=== PATIENT | female | born 1955 | race Caucasian/White ===

== ENCOUNTER 2017-04-18 16:17 | Observation (INO) | payer MEDICARE, OTHER ==
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
--- NOTE | ~2017-04-18 | EKG ---
PATIENT: YVONNE TRUJILLO UNIT #: [id number] Ventricular Rate: 76 BPM Atrial Rate: 76 BPM P-R Interval: 132 ms QRS Duration: 78 ms Q-T Interval: 402 ms QTC Calculation(Bezet): 452 ms P Galva: 78 degrees Calculated R Galva: 33 degrees Calculated T Galva: 62 degrees Diagnosis Line: Normal sinus rhythm Diagnosis Line: Nonspecific ST and T wave abnormality Diagnosis Line: Abnormal ECG Diagnosis Line: No previous ECGs available Diagnosis Line: Confirmed by YAMILA DEJESUS MD ([id number]) on Diagnosis Line: 04/18/2017 10:55:51 PM INTERPRETING MD: LORETO
--- NOTE | ~2017-04-18 | EKG ---
PATIENT: YVONNE TRUJILLO UNIT #: [id number] Ventricular Rate: 70 BPM Atrial Rate: 70 BPM P-R Interval: 140 ms QRS Duration: 80 ms Q-T Interval: 424 ms QTC Calculation(Bezet): 457 ms P Atherton: 77 degrees Calculated R Atherton: 9 degrees Calculated T Atherton: 57 degrees Diagnosis Line: Normal sinus rhythm with sinus arrhythmia Diagnosis Line: Normal ECG Diagnosis Line: When compared with ECG of 18-APR-2017 18:11, Diagnosis Line: Nonspecific T wave abnormality no longer evident Diagnosis Line: in Lateral leads Diagnosis Line: Confirmed by YAMILA DEJESUS MD ([id number]) on Diagnosis Line: 04/20/2017 7:20:30 AM INTERPRETING MD: LORETO
--- NOTE | ~2017-04-18 | ST ---
Unit #: [id number] #: [id number] Patient: YVONNE TRUJILLO [id number] [address] [address] [id number] I MR#: [id number] NAME: YVONNE TRUJILLO : 1955 SEX: F STUDY DATE/TIME: 04/19/2017 UNIT: C3A PCU ROOM: [facility] STUDY DESCRIPTION: Walking Lexiscan stress test Attending Physician: Diana Spencer M.D. Primary Care Physician: Makayla Peter A.P.R.N. CARDIOLOGY REPORT PROCEDURE PERFORMED Walking Lexiscan Cardiolite stress test. REPORT Baseline EKG - Normal sinus rhythm with ventricular rate 62 beats per minute, left atrial abnormality, slow R wave progression, nonspecific ST-T wave abnormalities in inferior leads. Lexiscan is a 4-minute test with Lexiscan being injected within the first minute, followed by Cardiolite. FINDINGS 1. EKG during the test showed a 0.5 mm to [address] depression in inferior, anterolateral leads. 2. The patient had no complaints of chest pain, palpitations or dizziness. Had increased shortness of breath and fatigue, which resolved in recovery phase. 3. Maximum heart rate response was 122 beats per minute with a maximum blood pressure response of 150/80 mmHg. 4. Cardiolite was injected after Lexiscan within the first minute of the test. Radionuclide tests pending. Please correlate with nuclear images. Dictated by... Thelma Guzmán A.P.R.N. for Senthil Hernandez/mahendra TD: 04/19/2017 11:40 JOB #: [id number] CARDIOLOGY REPORT Page 1 of 1 X Thelma Guzmán APRN CARDIOLOGY REPORT
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
--- NOTE | ~2017-04-18 | CR72 ---
[facility] A Service of [facility] & [facility] RADIOLOGY TEXT RESULTS PATIENT: YVONNE TRUJILLO LOCATION: [facility] 322-01 : [birth year] UNIT #: [id number] AGE: [address]: Diana Spencer MD SEX: F ORDER DR: [id number] [facility] [address] [place], [place] [address] [id number] I MR#: [id number] Acc #: [id number] NAME: YVONNE TRUJILLO. : 1955 SEX: F STUDY DATE/TIME: 04/18/2017 17:49 UNIT: [address] ROOM: [facility] STUDY DESCRIPTION: CR Chest Single View Portable Attending Physician: Diana Spencer M.D. Ordering Physician: Ed Chuckie Sanchez M.D. Primary Care Physician: Makayla Peter A.P.R.N. MEDICAL IMAGING REPORT This report is preliminary unless electronic signature is present EXAM Portable chest. HISTORY History of bronchitis, shortness of air, chest pain. Onset this morning. FINDINGS A single AP portable view of the chest shows both lungs to be clear. The heart is normal in size. The mediastinal contour is normal. No significant bone abnormalities are seen. IMPRESSION Normal AP portable chest. Dictated by... Connie Florian M.D. THIS IS AN ELECTRONICALLY VERIFIED REPORT Connie Florian M.D. at 04/19/2017 2:48 PM Dipti TD: 04/19/2017 00:30 JOB #: [id number] MEDICAL IMAGING REPORT Page 1 of 1 COPY
--- NOTE | ~2017-04-18 | TH ---
Unit #: [id number] #: [id number] Patient: YVONNE TRUJILLO [id number] [address] [address] [id number] I MR#: [id number] NAME: YVONNE TRUJILLO : 1955 SEX: F STUDY DATE/TIME: 04/19/2017 UNIT: C3A PCU [facility] STUDY DESCRIPTION: Attending Physician: Diana Spencer M.D. Primary Care Physician: Makayla Peter A.P.R.N. CARDIOLOGY REPORT EXAM Lexiscan Cardiolite stress test, nuclear portion. PROCEDURE Using technetium 99m labeled Cardiolite, rest and stress SPECT images were obtained. Multiple SPECT images were obtained in various views including horizontal and vertical long axis and short axis views of the left ventricle. Images were obtained by gated SPECT method. The patient was administered 12 mCi of Cardiolite at rest. Patient was administered 34.1 mCi of Cardiolite after Lexiscan infusion was completed. On the stress images, there was normal perfusion noted. The rest images show normal perfusion. Comparing rest and stress images, there is no stress-induced ischemia noted. The left ventricular ejection fraction is calculated to be 60%. There is no focal wall motion abnormality seen. CONCLUSION 1. No stress-induced ischemia noted. 2. The left ventricular ejection fraction is calculated to be 60%. 3. There is no focal wall motion abnormality seen. 4. Normal Lexiscan Cardiolite stress test. Dictated by... Senthil Hernandez TD: 04/19/2017 17:11 JOB #: [id number] CARDIOLOGY REPORT Page 1 of 1 X Fabi Palacios MD <ELECTRONICALLY SIGNED> 05/20/17 1429 CARDIOLOGY REPORT
[~2017-04-18 16:17] MED LIST: AMITRIPTYLINE H25 MG PO; ASPIR-TRIN325 MG PO; BLACK COHOSH40 MG PO; CELEBREX PO; FLEXERIL; FLEXERIL PO; FLEXERIL10 MG PO; GENTLE LAXATIVE10 MG RC; HYDROCODON-ACE1 EAC9 PO; IBUPROFEN800 MG; LORTAB 5/500 TA1 TA1 PO; MEDROL DOSEPAK4 MG DOB; MEDROL2 MG PO; MEDROL4 MG/DOSE- PO; MOBIC; NAPROSYN250 M1 PO; NEURONTIN PO; NEURONTIN300 MG PO; NORCO 10-325 TA1 TAB PO; NORCO 5/325 TAB1 TAB PO; ORUDIS75 M1 PO; PERCOCET5/325 PO; PREDNISONE PO; PREDNISONE10 MG/DOSE PO; PREDNISONE5 M1 PO; PRILOSEC20 MG PO; PRILOSEC40 MG PO; PV NEURO VITE T1 TAB; SENNA S TABLET1 TAB PO; SKELAXIN PO; STERAPRED5 MG/DOSE1; TRAMADOL HCL100 M1; TRAMADOL HCL50 M1 PO; VICODIN PO
[2017-04-18 17:26] LABS: BASOPHIL# 0.1 X10e3 (0-0.3); BASOPHIL% 0.7 % (0-2.5); EOSINOPHIL% 0.2 % (0.0-7.0); HEMATOCRIT 46.7 % (35.0-45.0); HEMOGLOBIN 15.6 gm/dL (12.0-16.0); LYMPHOCYTE% 17.1 % (17.0-45.0); MEAN CELL VOLUME 96.2 FL (83-96); MEAN CORPUSCULAR HEMOGLOBIN 32.2 PG (28-34); MEAN CORPUSCULAR HGB CONC 33.4 g/dL (30-36); MEAN PLATELET VOLUME 7.9 FL (6.5-11.5); MONOCYTE# 0.7 X10e3 (0-1.0); MONOCYTE% 6.3 % (3.0-12.0); NEUTROPHIL# 8.6 X10e3 (1.5-7.1); NEUTROPHIL% 75.7 % (40-75); PLATELET COUNT 313 X10e3 (140-420); RED BLOOD COUNT 4.85 X10e (3.90-5.30); RED CELL DISTRIBUTION WIDTH 13.2 % (11.0-15.5); WHITE BLOOD COUNT 11.4 X10e3 (4.0-10.5)
[2017-04-18 17:28] LABS: DIFF IND NO
[2017-04-18 17:38] LABS: POC - CKMB 1.3 ng/mL (0.0-7.9); POC - TROPONIN <0.05 ng/mL (<=0.05)
[2017-04-18 17:46] LABS: PARTIAL THROMBOPLASTIN TIME 23.7 SECONDS (23.5-31.3); PROTHROMBIN TIME (PATIENT) 10.5 SECONDS (10.0-11.7)
[2017-04-18 17:53] LABS: BILIRUBIN, DIRECT 0.1 mg/dL (0.0-0.2); BILIRUBIN,INDIRECT 0.7 mg/dL (0.0-0.9); BILIRUBIN,TOTAL 0.8 mg/dL (0.2-2.0); BUN/CREATININE RATIO 13.75; CALCIUM SERUM 9.1 mg/dL (8.4-10.2); CREATININE SERUM 0.8 mg/dL (0.6-1.4); GLOM FILT RATE Estimated 80.2 mL/min (>60); POTASSIUM 3.1 mmol/L (3.5-5.1); PROTEIN TOTAL SERUM 7.1 g/dL (6.0-8.3)
[2017-04-18] MEDS ORDERED: NEURONTIN800 MG PO (20:15)
[2017-04-18] MEDS ORDERED: OMEPRAZOLE40 M1 PO (20:15)
[2017-04-18] MEDS ORDERED: OXYCODONE HCL10 MG PO (20:16)
[2017-04-18] MEDS ORDERED: B-121000 MC3 PO (20:17)
[2017-04-18] MEDS ORDERED: MULTIVITAMINS1 EAC3 PO (20:18)
[2017-04-19 01:13] LABS: MB 1.8 ng/ml
[2017-04-19 05:57] LABS: CK TOTAL 58 IU/L (26-140)
[2017-04-19 09:59] LABS: CHOLESTEROL 179 mg/dL (0-200); HDL CHOLESTEROL 79 mg/dL (35-95); LDL CHOLESTEROL 83 mg/dL (-130); LDL/HDL RATIO 1 RATIO (0-4); TRIGLYCERIDES 84 mg/dL (10-160)
[2017-04-19 16:13] LABS: %MB 3.4 % (0.0-4.0); MB 2.1 ng/ml
[2017-04-19] MEDS ORDERED: NICOTINE TRANSD14 MG TOP (16:53)
[2017-04-19] MEDS ORDERED: SYMBICORT INH (16:54)
[2017-04-19 17:15] LABS: FREE T3 2.2 pg/mL (2.5-3.9)
[2017-04-19 17:16] LABS: FREE THYROXIN (T4) 0.56 ng/dL (0.58-1.64)
== END 2017-04-19 17:57 | disposition home or self-care (01) ==
LOC: CED 16:17 → CEDOF 20:25 → C3A PCU 20:25 → CED 20:25 → CEDOF 22:28 → C3A PCU 22:28
PROVIDERS: Emergency Medicine; Internal Medicine Cardiovascular Disease; Physician Assistant Medical
DX: R07.89 Other chest pain (principal); R06.00 Dyspnea, unspecified; R94.31 Abnormal electrocardiogram [ECG] [EKG]; E87.6 Hypokalemia; M54.9 Dorsalgia, unspecified; G89.29 Other chronic pain; F17.210 Nicotine dependence, cigarettes, uncomplicated; Z80.1 Family history of malignant neoplasm of trachea, bronchus and lung; J43.2 Centrilobular emphysema; R91.8 Other nonspecific abnormal finding of lung field
CPT/HCPCS: 36415; 71010; 71275; 78452; 80048; 80061; 80076; 82550; 82553; 84439; 84443; 84481; 84484; 85025; 85610; 85730; 93005; 93017; 93306; 94640; 96372; 96374; 99285; A9500; G0378; J1650; J2785; J2930; Q9967